=== PATIENT | female | born 1950 | race Caucasian/White ===

== ENCOUNTER → 2017-02-08 | Outpatient (CLI) | payer OTHER ==
[~2017-02-08] MED LIST: ALEN70TA2 PO; AMITRIP PO; AML5T GT; LEVO150T68 PO; PRE5T GT
== END | disposition home or self-care (01) ==
LOC: LAB 09:37
PROVIDERS: ATTEND Internal Medicine
DX: I10 Essential (primary) hypertension (principal); K52.9 Noninfective gastroenteritis and colitis, unspecified
CPT/HCPCS: 36415; 82607; 83036; 84443

== ENCOUNTER → 2017-10-12 | Outpatient (CLI) | payer OTHER ==
[2017-10-12 14:50] LABS: Basophils # (auto) 0.1 uL; Eosinophils # (auto) 0.3 uL; Eosinophils % (auto) 4.8 % (0.0-7.0); Hematocrit 37.6 % (36.0-46.0); Hemoglobin 12.7 g/dL (12.2-16.2); Lymphocytes # (auto) 1.8 uL; Lymphocytes % (auto) 29.5 % (10.0-50.0); Mean Corpuscular Hemoglobin 29.7 pg (28.0-32.0); Mean Corpuscular Hgb Conc. 33.7 g/dL (32.0-36.0); Mean Corpuscular Volume 88.3 fL (80.0-100.0); Mean Platelet Volume 9.4 fL (6.9-10.8); Monocytes # (auto) 0.4 uL; Monocytes % (auto) 7.3 % (0.0-12.0); Neutrophils # (auto) 3.5 uL; Neutrophils % (auto) 57.4 % (37.0-80.0); Platelet Count (auto) 248 10^3/uL (140-450); Red Cell Distribution Width 13.5 % (11.8-14.3); White Blood Cell 6.2 10^3/uL (4.4-10.8)
[2017-10-12 15:31] LABS: Albumin 3.4 g/dL (3.4-5.0); BUN/Creatinine Ratio 10.2; Bilirubin, Total 0.5 mg/dL (0.2-1.0); Calcium 8.3 mg/dL (8.5-10.1); Potassium 3.8 mmol/L (3.5-5.1); Total Protein 6.8 g/dL (6.4-8.2)
== END | disposition home or self-care (01) ==
LOC: LAB 14:28
PROVIDERS: ATTEND Internal Medicine
DX: I10 Essential (primary) hypertension (principal); E03.9 Hypothyroidism, unspecified
CPT/HCPCS: 36415; 80053; 80061; 82043; 84439; 84443; 85025; 85652

== ENCOUNTER → 2018-08-02 | Outpatient (CLI) | payer OTHER ==
[2018-08-02 08:44] LABS: Basophils # (auto) 0.1 uL; Basophils % (auto) 0.5 % (0.0-2.0); Eosinophils # (auto) 0.2 uL; Eosinophils % (auto) 2.1 % (0.0-7.0); Hematocrit 41.4 % (36.0-46.0); Hemoglobin 13.3 g/dL (12.2-16.2); Lymphocytes # (auto) 1.5 uL; Lymphocytes % (auto) 14.3 % (10.0-50.0); Mean Corpuscular Hemoglobin 28.8 pg (28.0-32.0); Mean Corpuscular Hgb Conc. 32.1 g/dL (32.0-36.0); Mean Corpuscular Volume 89.5 fL (80.0-100.0); Monocytes # (auto) 0.4 uL; Monocytes % (auto) 3.4 % (0.0-12.0); Neutrophils # (auto) 8.4 uL; Neutrophils % (auto) 79.7 % (37.0-80.0); Platelet Count (auto) 286 10^3/uL (140-450); Red Blood Cells 4.62 10^6/uL (4.0-5.20); Red Cell Distribution Width 14.4 % (11.8-14.3); White Blood Cell 10.6 10^3/uL (4.4-10.8)
[2018-08-02 09:16] LABS: Albumin 3.8 g/dL (3.4-5.0); BUN/Creatinine Ratio 9.2; Bilirubin, Total 0.6 mg/dL (0.2-1.0); Calcium 8.3 mg/dL (8.5-10.1); Potassium 3.7 mmol/L (3.5-5.1); Total Protein 7.4 g/dL (6.4-8.2)
[2018-08-02 09:17] LABS: Free T4 (Free Thyroxine) 1.33 ng/dL (0.89-1.76)
[2018-08-03 10:26] LABS: Urine Bacteria FEW /hpf (None Seen); Urine Blood Negative /uL (Negative); Urine Mucus FEW (None Seen); Urine Specific Gravity 1.017 (1.001-1.035); Urine WBC 10 /hpf (0 - 5)
== END | disposition home or self-care (01) ==
LOC: LAB 07:51
PROVIDERS: ATTEND Internal Medicine
DX: I10 Essential (primary) hypertension (principal); Z87.39 Personal history of other diseases of the musculoskeletal system and connective tissue
CPT/HCPCS: 36415; 80053; 80061; 81001; 82043; 82607; 83970; 84439; 84443; 84550; 85025; 85652; 86431

== ENCOUNTER → 2019-04-11 | Outpatient (CLI) | payer OTHER | END | disposition home or self-care (01) | LOC: LAB 10:49 | PROVIDERS: ATTEND Internal Medicine | DX: E03.9 Hypothyroidism, unspecified (principal); I10 Essential (primary) hypertension | CPT/HCPCS: 36415; 84132; 84439; 84443 ==

== ENCOUNTER → 2019-07-26 | Outpatient (CLI) | payer OTHER ==
[2019-07-26 16:09] LABS: Basophils # (auto) 0.1 uL; Basophils % (auto) 0.9 % (0.0-2.0); Eosinophils # (auto) 0.6 uL; Eosinophils % (auto) 7.5 % (0.0-7.0); Hematocrit 38.3 % (36.0-46.0); Hemoglobin 12.9 g/dL (12.2-16.2); Lymphocytes % (auto) 26.9 % (10.0-50.0); Mean Corpuscular Hemoglobin 29.5 pg (28.0-32.0); Mean Corpuscular Hgb Conc. 33.6 g/dL (32.0-36.0); Mean Corpuscular Volume 87.9 fL (80.0-100.0); Monocytes # (auto) 0.6 uL; Monocytes % (auto) 8.5 % (0.0-12.0); Neutrophils # (auto) 4.2 uL; Neutrophils % (auto) 56.2 % (37.0-80.0); Platelet Count (auto) 269 10^3/uL (140-450); Red Blood Cells 4.36 10^6/uL (4.0-5.20); Red Cell Distribution Width 14.5 % (11.8-14.3); White Blood Cell 7.5 10^3/uL (4.4-10.8)
[2019-07-26 16:50] LABS: Albumin 3.9 g/dL (3.4-5.0); Calcium 8.6 mg/dL (8.5-10.1); Potassium 3.6 mmol/L (3.5-5.1)
[2019-07-26 16:53] LABS: Bilirubin, Total 0.6 mg/dL (0.2-1.0); Total Protein 7.2 g/dL (6.4-8.2)
== END | disposition home or self-care (01) ==
LOC: LAB 15:37
PROVIDERS: ATTEND Internal Medicine
DX: E03.9 Hypothyroidism, unspecified (principal); I10 Essential (primary) hypertension; Z79.52 Long term (current) use of systemic steroids
CPT/HCPCS: 36415; 80053; 82785; 83036; 84439; 84443; 85025; 85652

== ENCOUNTER → 2019-11-09 | Outpatient (CLI) | payer OTHER ==
[2019-11-09 16:32] LABS: Cholesterol 185 mg/dL (< 200); Triglycerides 95 mg/dL (< 150)
[2019-11-09 16:34] LABS: HDL Cholesterol 97 mg/dL (40-59); LDL Cholesterol 75 mg/dL (< 100)
== END | disposition home or self-care (01) ==
LOC: LAB 15:52
PROVIDERS: ATTEND Internal Medicine
DX: E21.3 Hyperparathyroidism, unspecified (principal); E53.8 Deficiency of other specified B group vitamins; I10 Essential (primary) hypertension
CPT/HCPCS: 36415; 80061; 82607; 83970

== ENCOUNTER → 2020-05-09 | Outpatient (CLI) | payer OTHER ==
[2020-05-09 14:59] LABS: Band Neutrophils % (manual) 0; Basophils % (manual) 0 (0.0-2.0); Blast Cells 0; Metamyelocytes % 0; Myelocytes % 0; Promyelocytes % 0; Reactive Lymphocytes 0
[2020-05-09 15:06] LABS: Hematocrit 36.3 % (36.0-46.0); Hemoglobin 11.9 g/dL (12.2-16.2); Mean Corpuscular Hemoglobin 28.9 pg (28.0-32.0); Mean Corpuscular Hgb Conc. 32.6 g/dL (32.0-36.0); Mean Corpuscular Volume 88.7 fL (80.0-100.0); Platelet Count (auto) 343 10^3/uL (140-450); Red Cell Distribution Width 14.1 % (11.8-14.3); White Blood Cell 10.3 10^3/uL (4.4-10.8)
[2020-05-09 15:15] LABS: Band Neutrophils % (manual) 0; Basophils % (manual) 0 (0.0-2.0); Blast Cells 0; Metamyelocytes % 0; Myelocytes % 0; Promyelocytes % 0; Reactive Lymphocytes 0
[2020-05-09 16:06] LABS: Albumin 3.5 g/dL (3.4-5.0); Calcium 8.8 mg/dL (8.5-10.1); Potassium 3.7 mmol/L (3.5-5.1)
[2020-05-09 16:09] LABS: BUN/Creatinine Ratio 15.3; Bilirubin, Total 0.6 mg/dL (0.2-1.0); Total Protein 7.2 g/dL (6.4-8.2)
[2020-05-09 16:15] LABS: Free T4 (Free Thyroxine) 0.99 ng/dL (0.89-1.76)
[2020-05-09 17:10] LABS: Eosinophils % (manual) 5 (0-7); Lymphocytes % (manual) 28 (10.0-50.0); Monocytes % (manual) 9 (0-12)
[2020-05-09 17:12] LABS: Eosinophils % (manual) 5 (0-7); Lymphocytes % (manual) 28 (10.0-50.0); Monocytes % (manual) 9 (0-12); Platelet Count (auto) 343 10^3/uL (140-450)
== END | disposition home or self-care (01) ==
LOC: LAB 14:36
PROVIDERS: ATTEND Internal Medicine
DX: I89.0 Lymphedema, not elsewhere classified (principal); I10 Essential (primary) hypertension; L30.9 Dermatitis, unspecified
CPT/HCPCS: 36415; 80053; 82607; 83615; 84439; 84443; 85007; 85027; 85652

== ENCOUNTER → 2020-07-10 | Outpatient (CLI) | payer OTHER ==
[2020-07-10 17:58] LABS: Basophils # (auto) 0 10 ^3/uL (0-0.2); Basophils % (auto) 0.3 % (0.0-2.0); Eosinophils # (auto) 0.3 10 ^3/uL (0-0.8); Eosinophils % (auto) 2.7 % (0.0-7.0); Hematocrit 33.3 % (36.0-46.0); Hemoglobin 10.7 g/dL (12.2-16.2); Lymphocytes # (auto) 2.3 10 ^3/uL (0.4-5.4); Lymphocytes % (auto) 21.9 % (10.0-50.0); Mean Corpuscular Hemoglobin 27.8 pg (28.0-32.0); Mean Corpuscular Hgb Conc. 32.3 g/dL (32.0-36.0); Mean Corpuscular Volume 86.3 fL (80.0-100.0); Monocytes # (auto) 1.2 10 ^3/uL (0-1.3); Monocytes % (auto) 11.2 % (0.0-12.0); Neutrophils # (auto) 6.8 10 ^3/uL (1.6-8.6); Neutrophils % (auto) 63.9 % (37.0-80.0); Platelet Count (auto) 365 10^3/uL (140-450); Red Blood Cells 3.86 10^6/uL (4.0-5.20); Red Cell Distribution Width 14.6 % (11.8-14.3); White Blood Cell 10.6 10^3/uL (4.4-10.8)
[2020-07-10 18:06] LABS: BUN/Creatinine Ratio 12.9; Calcium 8.2 mg/dL (8.5-10.1); Potassium 3.5 mmol/L (3.5-5.1)
[2020-07-10 18:09] LABS: Bilirubin, Total 0.3 mg/dL (0.2-1.0); Total Protein 7.2 g/dL (6.4-8.2)
== END | disposition home or self-care (01) ==
LOC: LAB 17:09
PROVIDERS: ATTEND Internal Medicine
DX: N18.3 Chronic kidney disease, stage 3 (moderate) (principal); I89.0 Lymphedema, not elsewhere classified
CPT/HCPCS: 36415; 80053; 84439; 84443; 85025

== ENCOUNTER → 2020-07-31 | Outpatient (CLI) | payer OTHER | END | disposition home or self-care (01) | LOC: LAB 16:24 | PROVIDERS: ATTEND Internal Medicine | DX: L97.319 Non-pressure chronic ulcer of right ankle with unspecified severity (principal) | CPT/HCPCS: 87205 ==

== ENCOUNTER → 2020-08-05 | Outpatient (CLI) | payer OTHER | END | disposition home or self-care (01) | LOC: LAB 15:40 | PROVIDERS: ATTEND Internal Medicine | DX: I89.0 Lymphedema, not elsewhere classified (principal) | CPT/HCPCS: 36415; 82565; 84520 ==

== ENCOUNTER → 2020-08-08 | Outpatient (CLI) | payer OTHER | END | disposition home or self-care (01) | LOC: LAB 16:10 | PROVIDERS: ATTEND Internal Medicine | DX: N39.0 Urinary tract infection, site not specified (principal) | CPT/HCPCS: 87086 ==

== ENCOUNTER → 2020-09-19 | Outpatient (CLI) | payer OTHER ==
[2020-09-19 14:34] LABS: Basophils # (auto) 0 10 ^3/uL (0-0.2); Basophils % (auto) 0.7 % (0.0-2.0); Eosinophils % (auto) 14.5 % (0.0-7.0); Hematocrit 35.4 % (36.0-46.0); Hemoglobin 11.4 g/dL (12.2-16.2); Lymphocytes # (auto) 1.3 10 ^3/uL (0.4-5.4); Lymphocytes % (auto) 20.2 % (10.0-50.0); Mean Corpuscular Hemoglobin 28.2 pg (28.0-32.0); Mean Corpuscular Hgb Conc. 32.3 g/dL (32.0-36.0); Mean Corpuscular Volume 87.3 fL (80.0-100.0); Monocytes # (auto) 0.6 10 ^3/uL (0-1.3); Monocytes % (auto) 8.7 % (0.0-12.0); Neutrophils # (auto) 3.7 10 ^3/uL (1.6-8.6); Neutrophils % (auto) 55.9 % (37.0-80.0); Platelet Count (auto) 337 10^3/uL (140-450); Red Blood Cells 4.06 10^6/uL (4.0-5.20); Red Cell Distribution Width 15.8 % (11.8-14.3); White Blood Cell 6.6 10^3/uL (4.4-10.8)
[2020-09-19 15:06] LABS: Potassium 3.5 mmol/L (3.5-5.1)
[2020-09-19 15:07] LABS: Albumin 3.2 g/dL (3.4-5.0); Calcium 8.7 mg/dL (8.5-10.1); Uric Acid 5.6 mg/dL (2.6-6.0)
[2020-09-19 15:10] LABS: BUN/Creatinine Ratio 9.3; Bilirubin, Total 0.3 mg/dL (0.2-1.0); Total Protein 6.7 g/dL (6.4-8.2)
[2020-09-20 13:03] LABS: Urine Bacteria MANY /hpf (None Seen); Urine Blood TRACE /uL (Negative); Urine Hyaline Cast FEW /lpf (0 - 2); Urine Mucus FEW (None Seen); Urine Specific Gravity 1.008 (1.001-1.035); Urine WBC 1 /hpf (0 - 5)
== END | disposition home or self-care (01) ==
LOC: LAB 14:13
PROVIDERS: ATTEND Internal Medicine
DX: D64.9 Anemia, unspecified (principal); I10 Essential (primary) hypertension
CPT/HCPCS: 36415; 80053; 80061; 81001; 82607; 84403; 84550; 85025; 85652

== ENCOUNTER → 2021-03-05 | Outpatient (CLI) | payer OTHER ==
[~2021-03-05] MED LIST changes: +AMIT25TA11 PO; -AMITRIP PO; +LEV150T PO; -LEVO150T68 PO
[2021-03-05 17:37] LABS: BUN/Creatinine Ratio 17.6; Calcium 8.9 mg/dL (8.5-10.1)
== END | disposition home or self-care (01) ==
LOC: LAB 16:07
PROVIDERS: ATTEND Internal Medicine
DX: I10 Essential (primary) hypertension (principal)
CPT/HCPCS: 36415; 80048; 84439; 84443

== ENCOUNTER → 2021-04-30 | Outpatient (CLI) | payer OTHER | END | disposition home or self-care (01) | LOC: XYW 09:45 | PROVIDERS: ATTEND Internal Medicine | DX: I11.0 Hypertensive heart disease with heart failure (principal); I50.32 Chronic diastolic (congestive) heart failure | CPT/HCPCS: 93306 ==

== ENCOUNTER → 2021-09-12 | Outpatient (CLI) | payer OTHER ==
[2021-09-12 11:29] LABS: Basophils # (auto) 0.1 10 ^3/uL (0-0.2); Basophils % (auto) 0.7 % (0.0-2.0); Eosinophils # (auto) 0.7 10 ^3/uL (0-0.8); Eosinophils % (auto) 9.2 % (0.0-7.0); Hematocrit 37.1 % (36.0-46.0); Hemoglobin 12.4 g/dL (12.2-16.2); Lymphocytes # (auto) 1.8 10 ^3/uL (0.4-5.4); Lymphocytes % (auto) 24.2 % (10.0-50.0); Mean Corpuscular Hemoglobin 28.7 pg (28.0-32.0); Mean Corpuscular Hgb Conc. 33.3 g/dL (32.0-36.0); Mean Corpuscular Volume 86.2 fL (80.0-100.0); Monocytes # (auto) 0.7 10 ^3/uL (0-1.3); Monocytes % (auto) 9.3 % (0.0-12.0); Neutrophils # (auto) 4.3 10 ^3/uL (1.6-8.6); Neutrophils % (auto) 56.6 % (37.0-80.0); Red Cell Distribution Width 14.6 % (11.8-14.3); White Blood Cell 7.5 10^3/uL (4.4-10.8)
[2021-09-12 11:44] LABS: Albumin 3.2 g/dL (3.4-5.0); Calcium 8.5 mg/dL (8.5-10.1); Potassium 3.6 mmol/L (3.5-5.1)
[2021-09-12 11:49] LABS: BUN/Creatinine Ratio 8.4; Bilirubin, Total 0.5 mg/dL (0.2-1.0); Total Protein 6.6 g/dL (6.4-8.2)
[2021-09-14 14:58] LABS: Free T4 (Free Thyroxine) 1.54 ng/dL (0.89-1.76)
== END | disposition home or self-care (01) ==
LOC: LAB 11:06
PROVIDERS: ATTEND Internal Medicine
DX: M00.1 Pneumococcal arthritis and polyarthritis (principal); I10 Essential (primary) hypertension; G62.9 Polyneuropathy, unspecified
CPT/HCPCS: 36415; 80053; 80061; 82607; 84439; 84443; 85025; 85652

== ENCOUNTER 2021-10-02 01:58 | Inpatient (IN) | payer OTHER ==
[~2021-10-02] VITALS: Ht 160 cm; Wt 85.7 kg
[2021-10-02] VITALS (7 sets, daily range): BP systolic 96–152; BP diastolic 54–110
[2021-10-02] MEDS ORDERED: TRIA0.5C TOP (04:49)
[2021-10-02] MEDS ORDERED: LEVO175T2 PO (04:49)
[2021-10-02] MEDS ORDERED: [UNRECOGNIZED DRUG - CODE] PO (04:49)
[2021-10-02] MEDS ORDERED: LISI-275 PO (04:49)
[2021-10-02] MEDS ORDERED: CHOL20007 PO (04:49)
[2021-10-02] MEDS: LEVOTHYROXINE SODIUM 50 MCG TAB PO SCH (07:25)
[2021-10-02] MEDS: cefTRIAXone 1GM/50ML D5W 50 ML IV SCH (09:40)
[2021-10-02] MEDS: LISINOPRIL 5 MG TAB PO SCH (10:00)
[2021-10-02] MEDS: SODIUM CHLORIDE 0.9% 1,000 ML IV SCH ×2 (10:23→19:00)
[2021-10-02 11:34] LABS: Basophils # (auto) 0.1 10 ^3/uL (0-0.2); Basophils % (auto) 0.7 % (0.0-2.0); Eosinophils # (auto) 0.7 10 ^3/uL (0-0.8); Eosinophils % (auto) 8.2 % (0.0-7.0); Hematocrit 36.8 % (36.0-46.0); Hemoglobin 12.3 g/dL (12.2-16.2); Lymphocytes # (auto) 1.2 10 ^3/uL (0.4-5.4); Lymphocytes % (auto) 15.3 % (10.0-50.0); Mean Corpuscular Hgb Conc. 33.6 g/dL (32.0-36.0); Mean Corpuscular Volume 86.3 fL (80.0-100.0); Monocytes # (auto) 0.8 10 ^3/uL (0-1.3); Monocytes % (auto) 10.3 % (0.0-12.0); Neutrophils # (auto) 5.3 10 ^3/uL (1.6-8.6); Neutrophils % (auto) 65.5 % (37.0-80.0); Nucleated Red Blood Cells % 0.1 %; Red Blood Cells 4.26 10^6/uL (4.0-5.20); Red Cell Distribution Width 14.5 % (11.8-14.3); White Blood Cell 8.1 10^3/uL (4.4-10.8)
[2021-10-02 11:42] LABS: Albumin 2.6 g/dL (3.4-5.0); Calcium 8.1 mg/dL (8.5-10.1); Magnesium 2.6 mg/dL (1.6-2.6); Potassium 4.1 mmol/L (3.5-5.1)
[2021-10-02 11:46] LABS: BUN/Creatinine Ratio 8.6; Bilirubin, Total 0.6 mg/dL (0.2-1.0); Total Protein 5.8 g/dL (6.4-8.2)
[2021-10-02] MEDS ORDERED: predniSONE 5 MG TAB PO ONE (13:15)
[2021-10-02] MEDS ORDERED: ENOXAPARIN SOD 40 MG/0.4 ML SYRINGE SC ONE (15:30)
[2021-10-03] MEDS: SODIUM CHLORIDE 0.9% 1,000 ML IV SCH ×2 (01:45→08:29)
[2021-10-03 05:00] VITALS: BP 131/71
[2021-10-03] MEDS: LEVOTHYROXINE SODIUM 50 MCG TAB PO SCH (06:20)
[2021-10-03 06:41] LABS: Calcium 8.3 mg/dL (8.5-10.1); Potassium 3.8 mmol/L (3.5-5.1)
[2021-10-03 06:43] LABS: Basophils # (auto) 0 10 ^3/uL (0-0.2); Basophils % (auto) 0.3 % (0.0-2.0); Eosinophils # (auto) 0.3 10 ^3/uL (0-0.8); Eosinophils % (auto) 2.6 % (0.0-7.0); Hematocrit 37.1 % (36.0-46.0); Hemoglobin 12.2 g/dL (12.2-16.2); Lymphocytes # (auto) 1.1 10 ^3/uL (0.4-5.4); Lymphocytes % (auto) 11.5 % (10.0-50.0); Mean Corpuscular Hemoglobin 28.7 pg (28.0-32.0); Mean Corpuscular Hgb Conc. 32.8 g/dL (32.0-36.0); Mean Corpuscular Volume 87.6 fL (80.0-100.0); Monocytes % (auto) 10.1 % (0.0-12.0); Neutrophils # (auto) 7.3 10 ^3/uL (1.6-8.6); Neutrophils % (auto) 75.5 % (37.0-80.0); Red Blood Cells 4.24 10^6/uL (4.0-5.20); Red Cell Distribution Width 14.7 % (11.8-14.3); White Blood Cell 9.7 10^3/uL (4.4-10.8)
[2021-10-03 06:44] LABS: BUN/Creatinine Ratio 12.9
[2021-10-03] MEDS: cefTRIAXone 1GM/50ML D5W 50 ML IV SCH (08:25)
[2021-10-03] MEDS: ENOXAPARIN SOD 40 MG/0.4 ML SYRINGE SC SCH (08:26)
[2021-10-03] MEDS: LISINOPRIL 5 MG TAB PO SCH (08:28)
[2021-10-03] MEDS: predniSONE 5 MG TAB PO SCH (08:28)
[2021-10-03 09:00] VITALS: BP 117/70
[2021-10-03 13:00] VITALS: BP 134/81
[2021-10-03 17:00] VITALS: BP 151/96
[2021-10-03 22:00] VITALS: BP 125/58
[2021-10-04 05:00] VITALS: BP 99/54
[2021-10-04] MEDS: LEVOTHYROXINE SODIUM 50 MCG TAB PO SCH (06:22)
[2021-10-04 09:30] VITALS: BP 108/64
[2021-10-04] MEDS: predniSONE 5 MG TAB PO SCH (09:46)
[2021-10-04] MEDS: cefTRIAXone 1GM/50ML D5W 50 ML IV SCH (09:46)
[2021-10-04] MEDS: ENOXAPARIN SOD 40 MG/0.4 ML SYRINGE SC SCH (09:47)
[2021-10-04 12:00] VITALS: BP 105/57
[2021-10-04] MEDS ORDERED: levoFLOXacin 500 MG TAB PO ONE (14:00)
[2021-10-04 16:00] VITALS: BP 113/71
[2021-10-04] MEDS: LISINOPRIL 5 MG TAB PO SCH (16:19)
[2021-10-04 22:00] VITALS: BP 122/71
[2021-10-05 05:00] VITALS: BP 98/46
[2021-10-05] MEDS: LEVOTHYROXINE SODIUM 50 MCG TAB PO SCH (06:18)
[2021-10-05 08:00] VITALS: BP 114/66
[2021-10-05] MEDS: ENOXAPARIN SOD 40 MG/0.4 ML SYRINGE SC SCH (10:00)
[2021-10-05] MEDS: predniSONE 5 MG TAB PO SCH (10:58)
[2021-10-05] MEDS: levoFLOXacin 500 MG TAB PO SCH (10:58)
[2021-10-05] MEDS: LISINOPRIL 5 MG TAB PO SCH (10:59)
[2021-10-05 12:00] VITALS: BP 128/62
[2021-10-05 16:00] VITALS: BP 120/64
[2021-10-05 22:00] VITALS: BP 107/70
[2021-10-06 05:00] VITALS: BP 117/73
[2021-10-06] MEDS: LEVOTHYROXINE SODIUM 50 MCG TAB PO SCH (06:35)
[2021-10-06 09:00] VITALS: BP 103/72
[2021-10-06] MEDS: levoFLOXacin 500 MG TAB PO SCH (10:40)
[2021-10-06] MEDS: predniSONE 5 MG TAB PO SCH (10:40)
[2021-10-06] MEDS: LISINOPRIL 5 MG TAB PO SCH (10:41)
[2021-10-06] MEDS: ENOXAPARIN SOD 40 MG/0.4 ML SYRINGE SC SCH (10:41)
[2021-10-06 13:00] VITALS: BP 96/51
[2021-10-06 18:28] VITALS: BP 96/51
[2021-10-07] MEDS ORDERED: LEVO-28 PO (11:07)
== END 2021-10-06 19:10 | disposition home health service (06) | DRG 552 ==
LOC: TELE-CENTR 01:58 → CENTRAL 19:30 → WEST WING 10-03 00:22
PROVIDERS: ADMIT Internal Medicine; ATTEND Internal Medicine
DX: M47.27 Other spondylosis with radiculopathy, lumbosacral region (principal); N30.00 Acute cystitis without hematuria; I10 Essential (primary) hypertension; E03.9 Hypothyroidism, unspecified; L20.9 Atopic dermatitis, unspecified; E66.9 Obesity, unspecified; G62.9 Polyneuropathy, unspecified; Z20.822 Contact with and (suspected) exposure to COVID-19; Z66 Do not resuscitate; B95.2 Enterococcus as the cause of diseases classified elsewhere; G89.29 Other chronic pain; Z88.0 Allergy status to penicillin; Z88.2 Allergy status to sulfonamides; Z91.040 Latex allergy status; Z90.49 Acquired absence of other specified parts of digestive tract; Z90.710 Acquired absence of both cervix and uterus; Z68.33 Body mass index [BMI] 33.0-33.9, adult
CPT/HCPCS: 36415; 72146; 72148; 80048; 80053; 82565; 82962; 83735; 84443; 85025; 87081; 87086; 87088; 87186; 87426; 97110; 97116; 97163; 97530; G0378; J0696

== ENCOUNTER 2021-10-06 23:08 | Observation (INO) | payer OTHER ==
[~2021-10-06] VITALS: Ht 165.1 cm; Wt 88.5 kg
[~2021-10-06 23:08] MED LIST changes: +CHOL20007 PO; +LEVO175T2 PO; +LISI-275 PO; +TRIA0.5C TOP; +[UNRECOGNIZED DRUG - CODE] PO
[2021-10-07 02:17] LABS: Albumin 3.1 g/dL (3.4-5.0); Calcium 9.1 mg/dL (8.5-10.1); Magnesium 2.3 mg/dL (1.6-2.6); Potassium 3.8 mmol/L (3.5-5.1)
[2021-10-07 02:18] LABS: INR 1.06 (0.9-1.15)
[2021-10-07 02:24] LABS: Basophils # (auto) 0 10 ^3/uL (0-0.2); Basophils % (auto) 0.2 % (0.0-2.0); Eosinophils # (auto) 0 10 ^3/uL (0-0.8); Eosinophils % (auto) 0.4 % (0.0-7.0); Hematocrit 40.2 % (36.0-46.0); Hemoglobin 13.4 g/dL (12.2-16.2); Lymphocytes # (auto) 1.4 10 ^3/uL (0.4-5.4); Lymphocytes % (auto) 10.7 % (10.0-50.0); Mean Corpuscular Hemoglobin 28.8 pg (28.0-32.0); Mean Corpuscular Hgb Conc. 33.3 g/dL (32.0-36.0); Mean Corpuscular Volume 86.6 fL (80.0-100.0); Monocytes # (auto) 1.2 10 ^3/uL (0-1.3); Neutrophils # (auto) 10.5 10 ^3/uL (1.6-8.6); Neutrophils % (auto) 79.7 % (37.0-80.0); Red Blood Cells 4.64 10^6/uL (4.0-5.20); Red Cell Distribution Width 14.6 % (11.8-14.3); White Blood Cell 13.2 10^3/uL (4.4-10.8)
[2021-10-07 02:28] LABS: Bilirubin, Total 0.4 mg/dL (0.2-1.0); Total Protein 7.2 g/dL (6.4-8.2)
[2021-10-07 04:23] LABS: Urine Bacteria NONE SEEN /hpf (None Seen); Urine Blood 1+ /uL (Negative); Urine Hyaline Cast FEW /lpf (0 - 2); Urine Mucus FEW (None Seen); Urine Specific Gravity 1.015 (1.001-1.035); Urine WBC 7 /hpf (0 - 5)
[2021-10-07] MEDS ORDERED: MORPHINE SULFATE INJECTION 2 MG/ML SYRG IV PRN (06:15)
[2021-10-07] MEDS ORDERED: NITROGLYCERIN 0.4 MG SL TAB SL PRN (06:15)
[2021-10-07] MEDS ORDERED: ONDANSETRON HCL 4 MG/2 ML VIAL IV PRN (06:15)
[2021-10-07] MEDS ORDERED: ACETAMINOPHEN 325 MG TAB PO PRN (06:15)
[2021-10-07] MEDS ORDERED: LEVOTHYROXINE SODIUM 100 MCG TAB PO SCH (07:23)
[2021-10-07] MEDS ORDERED: LEVOTHYROXINE SODIUM 50 MCG TAB PO SCH (07:24)
[2021-10-07] MEDS ORDERED: ZINC SULFATE 220mg CAP or TAB PO SCH (10:00)
[2021-10-07] MEDS ORDERED: ASCORBIC ACID 500 MG TAB PO SCH (10:00)
[2021-10-07] MEDS ORDERED: PANTOPRAZOLE 40 MG TAB PO SCH (10:00)
[2021-10-07] MEDS ORDERED: LISINOPRIL 5 MG TAB PO SCH (10:00)
[2021-10-07] MEDS ORDERED: ENOXAPARIN SOD 40 MG/0.4 ML SYRINGE SC SCH (10:00)
[2021-10-07] MEDS ORDERED: levoFLOXacin 500MG 100 ML IV SCH (10:00)
[2021-10-07] MEDS ORDERED: LEVO-28 PO (11:07)
[2021-10-07 14:00] VITALS: BP 109/54
== END 2021-10-07 16:20 | disposition home or self-care (01) ==
LOC: EDBD 23:08 → ER 23:08 → TELE 10-07 06:05 → INTOOBSV 10-07 06:05
PROVIDERS: ADMIT Nurse Practitioner; ATTEND Internal Medicine
DX: R55 Syncope and collapse (principal); Z20.822 Contact with and (suspected) exposure to COVID-19; M48.00 Spinal stenosis, site unspecified; I10 Essential (primary) hypertension; N39.0 Urinary tract infection, site not specified; D84.9 Immunodeficiency, unspecified; Z90.710 Acquired absence of both cervix and uterus; Z90.49 Acquired absence of other specified parts of digestive tract
CPT/HCPCS: 36415; 70450; 71045; 80053; 81001; 83605; 83735; 83880; 84484; 85025; 85610; 87426; 93886; 96365; 96366; 96372; 99285; G0378; J1650; J1956

== ENCOUNTER 2022-11-16 22:13 | Inpatient (IN) | payer MEDICARE, MEDICAID ==
[~2022-11-16] VITALS: Ht 170.2 cm; Wt 78.0 kg
[~2022-11-16 22:13] MED LIST changes: +LEVO-28 PO; -PRE5T GT; +PRE5T PO
[2022-11-17 01:06] LABS: Basophils # (auto) 0 10 ^3/uL (0-0.2); Basophils % (auto) 0.3 % (0.0-2.0); Eosinophils # (auto) 0.1 10 ^3/uL (0-0.8); Eosinophils % (auto) 0.5 % (0.0-7.0); Hematocrit 38.4 % (36.0-46.0); Hemoglobin 12.4 g/dL (12.2-16.2); Lymphocytes # (auto) 0.4 10 ^3/uL (0.4-5.4); Lymphocytes % (auto) 3.6 % (10.0-50.0); Mean Corpuscular Hemoglobin 28.2 pg (28.0-32.0); Mean Corpuscular Hgb Conc. 32.3 g/dL (32.0-36.0); Mean Corpuscular Volume 87.5 fL (80.0-100.0); Monocytes # (auto) 0.2 10 ^3/uL (0-1.3); Monocytes % (auto) 2.1 % (0.0-12.0); Neutrophils # (auto) 9.8 10 ^3/uL (1.6-8.6); Neutrophils % (auto) 93.5 % (37.0-80.0); Red Blood Cells 4.39 10^6/uL (4.0-5.20); Red Cell Distribution Width 15.2 % (11.8-14.3); White Blood Cell 10.5 10^3/uL (4.4-10.8)
[2022-11-17 01:27] LABS: Albumin 3.6 g/dL (3.4-5.0); BUN/Creatinine Ratio 12.4; Potassium 4.2 mmol/L (3.5-5.1)
[2022-11-17 01:29] LABS: Bilirubin, Total 0.8 mg/dL (0.2-1.0); Total Protein 6.9 g/dL (6.4-8.2)
[2022-11-17] MEDS ORDERED: HYDROcodone-ACET 5/325MG TAB PO PRN (05:30)
[2022-11-17] MEDS ORDERED: DOCUSATE SOD 100 MG CAP PO PRN (05:30)
[2022-11-17] MEDS ORDERED: MORPHINE SULFATE INJ 2 MG/ml SYRG IV PRN (05:30)
[2022-11-17] MEDS ORDERED: ONDANSETRON HCL 4 MG/2 ML VIAL IV PRN (05:30)
[2022-11-17] MEDS ORDERED: ACETAMINOPHEN 325 MG TAB PO PRN (05:30)
[2022-11-17] MEDS ORDERED: SODIUM CHLORIDE 0.9% 1,000 ML IV SCH (05:30)
[2022-11-17 05:48] LABS: Basophils # (auto) 0 10 ^3/uL (0-0.2); Basophils % (auto) 0.1 % (0.0-2.0); Eosinophils # (auto) 0 10 ^3/uL (0-0.8); Hematocrit 38.4 % (36.0-46.0); Hemoglobin 12.2 g/dL (12.2-16.2); Lymphocytes # (auto) 0.4 10 ^3/uL (0.4-5.4); Lymphocytes % (auto) 5.6 % (10.0-50.0); Mean Corpuscular Hemoglobin 27.9 pg (28.0-32.0); Mean Corpuscular Hgb Conc. 31.8 g/dL (32.0-36.0); Mean Corpuscular Volume 87.9 fL (80.0-100.0); Monocytes # (auto) 0.1 10 ^3/uL (0-1.3); Monocytes % (auto) 1.7 % (0.0-12.0); Neutrophils # (auto) 6.7 10 ^3/uL (1.6-8.6); Neutrophils % (auto) 92.6 % (37.0-80.0); Nucleated Red Blood Cells % 0.1 %; Red Blood Cells 4.37 10^6/uL (4.0-5.20); White Blood Cell 7.3 10^3/uL (4.4-10.8)
[2022-11-17 06:01] LABS: BUN/Creatinine Ratio 12.6; Calcium 8.7 mg/dL (8.5-10.1); Potassium 4.3 mmol/L (3.5-5.1)
[2022-11-17] MEDS ORDERED: FUROSEMIDE 20 MG/2 ML VIAL IV ONE (10:45)
[2022-11-17] MEDS ORDERED: predniSONE 5 MG TAB PO SCH (10:56)
[2022-11-17 14:52] LABS: Urine Specific Gravity 1.008 (1.001-1.035)
[2022-11-17 14:53] LABS: Urine Blood Normal /uL (Negative)
[2022-11-17] MEDS ORDERED: GABA100C9 PO (16:22)
[2022-11-17] MEDS ORDERED: CYAN25004 SL (16:22)
[2022-11-17] MEDS ORDERED: ERTAPENEM SOD INJ 1 GM in SODIUM CHL 0.9% 50 ML IV ONE (19:00)
[2022-11-17 22:00] VITALS: BP 136/74
[2022-11-17 22:13] VITALS: BP 136/74
[2022-11-18] VITALS (7 sets, daily range): BP systolic 90–135; BP diastolic 52–77
[2022-11-18 05:43] LABS: Calcium 8.6 mg/dL (8.5-10.1); Potassium 3.7 mmol/L (3.5-5.1)
[2022-11-18 05:45] LABS: BUN/Creatinine Ratio 16.3; Magnesium 2.4 mg/dL (1.6-2.6); Phosphorus 3.3 mg/dL (2.5-4.90)
[2022-11-18 05:53] LABS: Basophils # (auto) 0 10 ^3/uL (0-0.2); Basophils % (auto) 0.3 % (0.0-2.0); Eosinophils # (auto) 0.4 10 ^3/uL (0-0.8); Eosinophils % (auto) 4.2 % (0.0-7.0); Hematocrit 32.9 % (36.0-46.0); Hemoglobin 10.7 g/dL (12.2-16.2); Lymphocytes # (auto) 1.5 10 ^3/uL (0.4-5.4); Mean Corpuscular Hemoglobin 28.3 pg (28.0-32.0); Mean Corpuscular Hgb Conc. 32.7 g/dL (32.0-36.0); Mean Corpuscular Volume 86.6 fL (80.0-100.0); Monocytes # (auto) 0.9 10 ^3/uL (0-1.3); Monocytes % (auto) 8.9 % (0.0-12.0); Neutrophils % (auto) 71.6 % (37.0-80.0); White Blood Cell 9.8 10^3/uL (4.4-10.8)
[2022-11-18] MEDS: LEVOTHYROXINE SODIUM 50 MCG TAB PO SCH (06:34)
[2022-11-18] MEDS ORDERED: ERGOCALCIFEROL 50,000 UNIT(1.25MG) CAP PO SCH (08:00)
[2022-11-18] MEDS ORDERED: AMITRIPTYLINE HCL 25 MG TAB PO SCH (10:00)
[2022-11-18] MEDS ORDERED: amLODIPine BESYLATE 5 MG TAB PO SCH (10:00)
[2022-11-18] MEDS: FUROSEMIDE 20 MG/2 ML VIAL IV SCH (10:23)
[2022-11-18] MEDS: LISINOPRIL 5 MG TAB PO SCH (10:23)
[2022-11-18] MEDS: GABAPENTIN 100 MG CAP PO SCH (10:23)
[2022-11-18] MEDS: ERTAPENEM SOD INJ 1 GM in SODIUM CHL 0.9% 50 ML IV SCH (10:24)
[2022-11-18] MEDS ORDERED: prednisoLONE 15 MG/5 ML ORAL UD PO ONE (14:00)
[2022-11-18] MEDS ORDERED: OMNIPAQUE ORAL SOLN 500ml 12mg/ml PO ONE ×2 (16:34)
[2022-11-18] MEDS ORDERED: IOHEXOL 300 MG/ML 100ML BOTTLE IJ ONE (18:40)
[2022-11-19] MEDS: GABAPENTIN 100 MG CAP PO SCH ×2 (00:27→12:13)
[2022-11-19 05:19] VITALS: BP 113/66
[2022-11-19] MEDS: LEVOTHYROXINE SODIUM 50 MCG TAB PO SCH (06:59)
[2022-11-19 08:00] VITALS: BP 110/68
[2022-11-19 09:00] VITALS: BP 110/68
[2022-11-19] MEDS ORDERED: predniSONE 20 MG TAB PO SCH (10:00)
[2022-11-19] MEDS ORDERED: metroNIDAZOLE 500MG/100ML 100 ML IV ONE (11:00)
[2022-11-19] MEDS: LISINOPRIL 5 MG TAB PO SCH (12:13)
[2022-11-19] MEDS: FUROSEMIDE 20 MG/2 ML VIAL IV SCH (12:13)
[2022-11-19 13:00] VITALS: BP 101/62
[2022-11-19] MEDS: ERTAPENEM SOD INJ 1 GM in SODIUM CHL 0.9% 50 ML IV SCH (13:25)
[2022-11-19 13:34] VITALS: BP 101/62
[2022-11-19] MEDS ORDERED: metroNIDAZOLE 500MG/100ML 100 ML IV SCH (18:00)
== END 2022-11-19 15:27 | DRG 291 ==
LOC: ER 22:14 → OVERFLOW 11-17 05:24 → WEST WING 11-17 21:28
PROVIDERS: ADMIT Hospitalist; ATTEND Internal Medicine
DX: I11.0 Hypertensive heart disease with heart failure (principal); I50.31 Acute diastolic (congestive) heart failure; N30.00 Acute cystitis without hematuria; R62.7 Adult failure to thrive; R55 Syncope and collapse; E03.9 Hypothyroidism, unspecified; K52.9 Noninfective gastroenteritis and colitis, unspecified; Z20.822 Contact with and (suspected) exposure to COVID-19; L30.9 Dermatitis, unspecified; Z66 Do not resuscitate; G89.29 Other chronic pain; M54.9 Dorsalgia, unspecified; Z88.2 Allergy status to sulfonamides; Z88.0 Allergy status to penicillin; Z91.040 Latex allergy status; Z90.710 Acquired absence of both cervix and uterus; Z90.49 Acquired absence of other specified parts of digestive tract
CPT/HCPCS: 36415; 70450; 71045; 74177; 80048; 80053; 81003; 82306; 82378; 83036; 83735; 83880; 84100; 84439; 84443; 84484; 85025; 85652; 86141; 86431; 87086; 87088; 87186; 87426; 93306; 96360; 97110; 97116; 97163; 97530; G0378; J1335; J3490; J7510

== ENCOUNTER 2023-05-31 08:16 | Inpatient (IN) | payer MEDICARE, MEDICAID ==
[~2023-05-31] VITALS: Ht 160 cm; Wt 73.1 kg
[~2023-05-31 08:16] MED LIST changes: -ALEN70TA2 PO; +ALEN70TA21 PO; -AMIT25TA11 PO; -AML5T GT; -CHOL20007 PO; +CYAN25007 SL; +GABA-1308 PO; -LEV150T PO; -LEVO-28 PO; -[UNRECOGNIZED DRUG - CODE] PO
[2023-05-31 09:19] LABS: Hematocrit 41.8 % (36.0-46.0); Mean Corpuscular Hemoglobin 30.9 pg (28.0-32.0); Mean Corpuscular Hgb Conc. 33.4 g/dL (32.0-36.0); Mean Corpuscular Volume 92.7 fL (80.0-100.0); Red Blood Cells 4.51 10^6/uL (4.0-5.20); Red Cell Distribution Width 14.2 % (11.8-14.3); White Blood Cell 9.1 10^3/uL (4.4-10.8)
[2023-05-31 09:22] LABS: Band Neutrophils % (manual) 0; Basophils % (manual) 0 (0.0-2.0); Blast Cells 0; Eosinophils % (manual) 0 (0-7); Metamyelocytes % 0; Myelocytes % 0; Promyelocytes % 0; Reactive Lymphocytes 0
[2023-05-31 09:37] LABS: Albumin 3.3 g/dL (3.4-5.0); Calcium 8.6 mg/dL (8.5-10.1)
[2023-05-31 09:40] LABS: BUN/Creatinine Ratio 21.8 (10.0-20.0); Bilirubin, Total 1.2 mg/dL (0.2-1.0); Total Protein 6.1 g/dL (6.4-8.2)
[2023-05-31 09:45] LABS: Potassium 2.5 mmol/L (3.5-5.1)
[2023-05-31 09:50] VITALS: PULSE 88; RESP 16; O2SAT 97
[2023-05-31] MEDS ORDERED: POTASSIUM EFFERVESENT TAB 25 MEQ PO ONE (10:00)
[2023-05-31 10:16] LABS: Lymphocytes % (manual) 12 (10.0-50.0); Monocytes % (manual) 10 (0-12)
[2023-05-31 12:24] LABS: Urine WBC None Seen /hpf (0 - 5)
[2023-05-31 12:32] LABS: Urine Bacteria NONE SEEN /hpf (None Seen); Urine Blood Negative /uL (Negative); Urine Specific Gravity 1.024 (1.001-1.035)
[2023-05-31 12:54] LABS: Alcohol, Urine < 3.0 mg/dL (0-10); Amphetamine Screen, Urine NEGATIVE (NEGATIVE); Barbiturate Scree,Urine NEGATIVE (NEGATIVE); Benzodiazephine Screen, Urine NEGATIVE (NEGATIVE); Cannabinoid Screen, Urine NEGATIVE (NEGATIVE); Cocaine Screen, Urine NEGATIVE (NEGATIVE); Opiate Scree,Urine POSITIVE (NEGATIVE); Phencyclidine Screen, Urine NEGATIVE (NEGATIVE)
[2023-05-31 21:37] VITALS: PULSE 89; RESP 16; O2SAT 96
[2023-06-01 07:35] VITALS: PULSE 81; RESP 14; O2SAT 96
[2023-06-01 19:45] VITALS: PULSE 79; RESP 20; O2SAT 97
[2023-06-01] MEDS ORDERED: POTASSIUM CHL 20MEQ/100ML 100 ML IV ONE (21:00)
[2023-06-01 21:39] VITALS: PULSE 78; RESP 16; O2SAT 94
[2023-06-02] MEDS ORDERED: ACETAMINOPHEN 325 MG TAB PO PRN (01:00)
[2023-06-02] MEDS ORDERED: ONDANSETRON HCL 4 MG/2 ML VIAL IV PRN (01:00)
[2023-06-02] MEDS ORDERED: NITROGLYCERIN 0.4 MG SL TAB SL PRN (01:00)
[2023-06-02] MEDS ORDERED: MORPHINE SULFATE INJ 2 MG/ml SYRG IV PRN (01:00)
[2023-06-02] MEDS ORDERED: POTASSIUM CHLORIDE 40 MEQ, LIDOCAINE 1% (LOCAL ANESTH.) 4 ML in SODIUM CHL 0.9% 250 ML IV ONE (02:00)
[2023-06-02] MEDS ORDERED: POTASSIUM CHL 20MEQ/100ML 100 ML IV ONE ×2 (03:15→06:00)
[2023-06-02] MEDS: LEVOTHYROXINE SODIUM 50 MCG TAB PO SCH (07:11)
[2023-06-02 07:30] VITALS: PULSE 69; RESP 14; O2SAT 96
[2023-06-02] MEDS ORDERED: amLODIPine BESYLATE 5 MG TAB PO SCH (10:00)
[2023-06-02] MEDS: GABAPENTIN 100 MG CAP PO SCH ×2 (12:23→22:00)
[2023-06-02] MEDS: ENOXAPARIN SOD 40 MG/0.4 ML SYRINGE SC SCH (12:23)
[2023-06-02] MEDS: PANTOPRAZOLE 40 MG TAB PO SCH (12:23)
[2023-06-02] MEDS ORDERED: predniSONE 5 MG TAB PO ONE (16:30)
[2023-06-02] MEDS ORDERED: CYANOCOBALAMIN 500 MCG TAB PO ONE (16:30)
[2023-06-02 20:00] VITALS: PULSE 78; RESP 16; O2SAT 93
[2023-06-02 20:28] LABS: Calcium 7.1 mg/dL (8.5-10.1)
[2023-06-02] MEDS: HYDROcodone-ACET 5/325MG TAB PO PRN (22:00)
[2023-06-03] MEDS ORDERED: SODIUM CHLORIDE 0.9% 500 ML IV ONE (03:30)
[2023-06-03 05:57] LABS: BUN/Creatinine Ratio 21.4 (10.0-20.0); Calcium 6.9 mg/dL (8.5-10.1); Magnesium 1.3 mg/dL (1.6-2.6)
[2023-06-03] MEDS: LEVOTHYROXINE SODIUM 50 MCG TAB PO SCH (07:23)
[2023-06-03 07:50] VITALS: PULSE 87; RESP 14; O2SAT 97
[2023-06-03] MEDS ORDERED: MAGNESIUM SULFATE 1GM/100ML 100 ML IV ONE (10:00)
[2023-06-03] MEDS: ENOXAPARIN SOD 40 MG/0.4 ML SYRINGE SC SCH (10:37)
[2023-06-03] MEDS: GABAPENTIN 100 MG CAP PO SCH ×2 (10:38→21:07)
[2023-06-03] MEDS: predniSONE 5 MG TAB PO SCH (10:38)
[2023-06-03] MEDS: PANTOPRAZOLE 40 MG TAB PO SCH (10:38)
[2023-06-03] MEDS: CYANOCOBALAMIN 500 MCG TAB PO SCH (10:45)
[2023-06-03] MEDS ORDERED: SODIUM CHLORIDE 0.9% 250 ML IV ONE (13:00)
[2023-06-03] MEDS: SODIUM CHLORIDE 0.9% 1,000 ML IV ONE ×2 (13:07→15:08)
[2023-06-03] MEDS: POTASSIUM CHL 20 Meq TABLET PO SCH ×2 (15:07→21:10)
[2023-06-03 16:55] VITALS: BP 102/63; PULSE 74; RESP 17; TEMP 98; O2SAT 92
[2023-06-03] MEDS ORDERED: DIPH25CA66 PO (19:04)
[2023-06-03] MEDS ORDERED: AMLO1TAB22 PO (19:04)
[2023-06-03] MEDS ORDERED: ACET-1881 PO (19:04)
[2023-06-03] MEDS ORDERED: MAGNSUS48 PO (19:15)
[2023-06-03] MEDS ORDERED: GAB100C PO (19:15)
[2023-06-03] MEDS ORDERED: FURO20TA3 PO (19:15)
[2023-06-03] MEDS ORDERED: BISA10SU52 PR (19:15)
[2023-06-03] MEDS ORDERED: PRED20TA2 PO (19:15)
[2023-06-03] MEDS ORDERED: FLEETMIN PR (19:15)
[2023-06-03] MEDS ORDERED: LISI-275 PO (19:15)
[2023-06-03] MEDS ORDERED: DOCU-94 PO (19:15)
[2023-06-03] MEDS ORDERED: MULTTAB75 PO (19:15)
[2023-06-03] MEDS ORDERED: LEV50T PO (19:15)
[2023-06-03 20:10] VITALS: BP 97/64; PULSE 66; RESP 17; TEMP 97.6; O2SAT 95
[2023-06-03 22:00] VITALS: BP 97/64; PULSE 66; RESP 17; TEMP 97.6; O2SAT 95
[2023-06-04 05:00] VITALS: BP 93/59; PULSE 70; RESP 17; TEMP 97.5; O2SAT 100
[2023-06-04] MEDS: SODIUM CHLORIDE 0.9% 1,000 ML IV SCH ×3 (05:46→19:35)
[2023-06-04] MEDS: POTASSIUM CHL 20 Meq TABLET PO SCH ×3 (05:50→23:00)
[2023-06-04] MEDS: LEVOTHYROXINE SODIUM 50 MCG TAB PO SCH (06:00)
[2023-06-04 07:10] LABS: Potassium 4.7 mmol/L (3.5-5.1)
[2023-06-04 07:29] LABS: Calcium 7.3 mg/dL (8.5-10.1)
[2023-06-04 08:00] VITALS: BP 94/61; PULSE 71; PULSE 75; RESP 18; TEMP 97.7; O2SAT 94
[2023-06-04 09:00] VITALS: BP 94/61; PULSE 75; RESP 18; TEMP 97.9; O2SAT 94
[2023-06-04] MEDS: CYANOCOBALAMIN 500 MCG TAB PO SCH (10:00)
[2023-06-04] MEDS: GABAPENTIN 100 MG CAP PO SCH ×2 (10:24→23:00)
[2023-06-04] MEDS: PANTOPRAZOLE 40 MG TAB PO SCH (10:26)
[2023-06-04] MEDS: predniSONE 5 MG TAB PO SCH (10:26)
[2023-06-04] MEDS: ENOXAPARIN SOD 40 MG/0.4 ML SYRINGE SC SCH (10:27)
[2023-06-04 13:00] VITALS: BP 96/66; PULSE 84; RESP 20; TEMP 97.8; O2SAT 95
[2023-06-04 17:00] VITALS: BP 93/61; PULSE 84; RESP 18; TEMP 98.4; O2SAT 94
[2023-06-04 20:00] VITALS: PULSE 85; RESP 18; O2SAT 94
[2023-06-04] MEDS: MORPHINE SULFATE INJ 2 MG/ml SYRG IV PRN (23:32)
[2023-06-05 05:00] VITALS: BP 96/64; PULSE 83; RESP 17; TEMP 97.6; O2SAT 94
[2023-06-05 08:00] VITALS: BP 106/77; PULSE 76; PULSE 84; RESP 16; TEMP 97.4; O2SAT 94
[2023-06-05 08:51] VITALS: BP 106/77; PULSE 84; RESP 16; TEMP 97.4; O2SAT 94
[2023-06-05] MEDS: ENOXAPARIN SOD 40 MG/0.4 ML SYRINGE SC SCH (10:00)
[2023-06-05] MEDS: PANTOPRAZOLE 40 MG TAB PO SCH (10:00)
[2023-06-05] MEDS: POTASSIUM CHL 20 Meq TABLET PO SCH ×3 (10:00→21:38)
[2023-06-05] MEDS: LEVOTHYROXINE SODIUM 50 MCG TAB PO SCH (10:00)
[2023-06-05] MEDS: SODIUM CHLORIDE 0.9% 1,000 ML IV SCH (10:11)
[2023-06-05] MEDS: GABAPENTIN 100 MG CAP PO SCH ×2 (10:12→21:49)
[2023-06-05] MEDS: predniSONE 5 MG TAB PO SCH (10:12)
[2023-06-05 17:00] VITALS: BP 104/64; PULSE 83; RESP 14; TEMP 97.6; O2SAT 96
[2023-06-05 20:00] VITALS: PULSE 79; PULSE 80; RESP 18; O2SAT 94
[2023-06-05 22:00] VITALS: BP 93/63; PULSE 80; RESP 16; TEMP 97.3; O2SAT 94
[2023-06-06] VITALS (7 sets, daily range): BP systolic 88–100; BP diastolic 55–89; PULSE 78–89; RESP 16–18; TEMP 97.7–98.2; O2SAT 93–96
[2023-06-06] MEDS: POTASSIUM CHL 20 Meq TABLET PO SCH ×3 (06:00→21:58)
[2023-06-06] MEDS: LEVOTHYROXINE SODIUM 50 MCG TAB PO SCH (08:03)
[2023-06-06] MEDS: predniSONE 5 MG TAB PO SCH (11:14)
[2023-06-06] MEDS: GABAPENTIN 100 MG CAP PO SCH ×2 (11:14→21:55)
[2023-06-06] MEDS: ENOXAPARIN SOD 40 MG/0.4 ML SYRINGE SC SCH (11:15)
[2023-06-06] MEDS: SODIUM CHLORIDE 0.9% 1,000 ML IV SCH ×2 (14:30→22:40)
[2023-06-07] VITALS (8 sets, daily range): BP systolic 92–102; BP diastolic 59–64; PULSE 79–94; RESP 14–20; TEMP 97.8–98.4; O2SAT 94–95
[2023-06-07] MEDS: POTASSIUM CHL 20 Meq TABLET PO SCH ×3 (05:55→21:11)
[2023-06-07] MEDS: LEVOTHYROXINE SODIUM 50 MCG TAB PO SCH (05:55)
[2023-06-07] MEDS: GABAPENTIN 100 MG CAP PO SCH ×2 (09:18→22:00)
[2023-06-07] MEDS: predniSONE 5 MG TAB PO SCH (09:18)
[2023-06-07] MEDS: ENOXAPARIN SOD 40 MG/0.4 ML SYRINGE SC SCH (09:19)
[2023-06-07] MEDS: SODIUM CHLORIDE 0.9% 1,000 ML IV SCH (12:00)
[2023-06-08] VITALS (7 sets, daily range): BP systolic 94–120; BP diastolic 58–69; PULSE 78–89; RESP 14–19; TEMP 97.7–98.2; O2SAT 94–96
[2023-06-08] MEDS: SODIUM CHLORIDE 0.9% 1,000 ML IV SCH (01:20)
[2023-06-08] MEDS: POTASSIUM CHL 20 Meq TABLET PO SCH (06:00)
[2023-06-08] MEDS: LEVOTHYROXINE SODIUM 50 MCG TAB PO SCH (06:07)
[2023-06-08] MEDS: predniSONE 5 MG TAB PO SCH (10:12)
[2023-06-08] MEDS: GABAPENTIN 100 MG CAP PO SCH ×2 (10:12→21:05)
[2023-06-08] MEDS: ENOXAPARIN SOD 40 MG/0.4 ML SYRINGE SC SCH (10:13)
[2023-06-09] MEDS: LEVOTHYROXINE SODIUM 50 MCG TAB PO SCH (07:00)
[2023-06-09 08:10] VITALS: BP 92/60; PULSE 99; RESP 18; TEMP 98.3; O2SAT 93
[2023-06-09 09:00] VITALS: BP 92/60; PULSE 99; RESP 18; TEMP 98.3; O2SAT 93
[2023-06-09] MEDS: predniSONE 5 MG TAB PO SCH (09:11)
[2023-06-09] MEDS: GABAPENTIN 100 MG CAP PO SCH ×2 (09:11→21:21)
[2023-06-09] MEDS: ENOXAPARIN SOD 40 MG/0.4 ML SYRINGE SC SCH (09:12)
[2023-06-09 13:00] VITALS: BP 90/61; PULSE 84; RESP 18; TEMP 98.3; O2SAT 98
[2023-06-09 17:00] VITALS: BP 102/73; PULSE 94; RESP 18; TEMP 98.1; O2SAT 94
[2023-06-09 20:00] VITALS: BP 90/65; PULSE 84; RESP 19; TEMP 98; O2SAT 92
[2023-06-09] MEDS: POTASSIUM CHL 20 Meq TABLET PO SCH (21:24)
[2023-06-09] MEDS: NYSTATIN TOPICAL POWDER 15GM TOP SCH (21:26)
[2023-06-09 22:00] VITALS: BP 90/65; PULSE 84; RESP 19; TEMP 98; O2SAT 92
[2023-06-10 05:00] VITALS: BP 89/60; PULSE 92; RESP 19; TEMP 98.1; O2SAT 91
[2023-06-10] MEDS: LEVOTHYROXINE SODIUM 50 MCG TAB PO SCH (06:26)
[2023-06-10] MEDS: ENOXAPARIN SOD 40 MG/0.4 ML SYRINGE SC SCH (08:45)
[2023-06-10] MEDS: GABAPENTIN 100 MG CAP PO SCH ×2 (08:45→22:16)
[2023-06-10] MEDS: predniSONE 5 MG TAB PO SCH (08:45)
[2023-06-10] MEDS: POTASSIUM CHL 20 Meq TABLET PO SCH ×2 (08:46→22:16)
[2023-06-10] MEDS: NYSTATIN TOPICAL POWDER 15GM TOP SCH ×2 (08:48→22:26)
[2023-06-10 09:00] VITALS: BP 92/64; PULSE 89; RESP 18; TEMP 98; O2SAT 97
[2023-06-10 10:23] LABS: BUN/Creatinine Ratio 31.4 (10.0-20.0); Calcium 8.3 mg/dL (8.5-10.1); Potassium 3.9 mmol/L (3.5-5.1)
[2023-06-10 13:00] VITALS: BP 89/46; PULSE 94; RESP 14; TEMP 98.1; O2SAT 95
[2023-06-10] MEDS ORDERED: SODIUM CHLORIDE 0.9% 1,000 ML IV ONE (15:30)
[2023-06-10 16:51] VITALS: BP 90/49; PULSE 87; RESP 18; TEMP 97.9; O2SAT 97
[2023-06-10 20:00] VITALS: BP 88/49; PULSE 90; RESP 16; TEMP 97.4; O2SAT 94
[2023-06-10 22:00] VITALS: BP 88/49; PULSE 90; RESP 16; TEMP 97.4; O2SAT 94
[2023-06-10] MEDS: SERTRALINE HCL 50 MG TAB PO SCH (22:19)
[2023-06-11 04:04] LABS: Urine Bacteria MOD /hpf (None Seen); Urine Blood TRACE /uL (Negative); Urine Mucus FEW (None Seen); Urine Specific Gravity 1.014 (1.001-1.035); Urine WBC 193 /hpf (0 - 5); Urine WBC Clumps PRESENT /hpf (None Seen)
[2023-06-11 05:00] VITALS: BP 91/60; PULSE 85; RESP 18; TEMP 98.1; O2SAT 94
[2023-06-11 06:22] LABS: Hematocrit 27.2 % (36.0-46.0); Hemoglobin 9.3 g/dL (12.2-16.2); Mean Corpuscular Hemoglobin 30.8 pg (28.0-32.0); Mean Corpuscular Hgb Conc. 34.2 g/dL (32.0-36.0); Red Blood Cells 3.03 10^6/uL (4.0-5.20); Red Cell Distribution Width 15.2 % (11.8-14.3); White Blood Cell 5.8 10^3/uL (4.4-10.8)
[2023-06-11 06:26] LABS: Basophils % (manual) 0 (0.0-2.0); Blast Cells 0; Promyelocytes % 0; Reactive Lymphocytes 0
[2023-06-11] MEDS: LEVOTHYROXINE SODIUM 50 MCG TAB PO SCH (06:36)
[2023-06-11 06:59] LABS: BUN/Creatinine Ratio 31.3 (10.0-20.0); Potassium 4.2 mmol/L (3.5-5.1)
[2023-06-11 07:05] LABS: Bilirubin, Total 0.4 mg/dL (0.2-1.0); Calcium 7.6 mg/dL (8.5-10.1); Total Protein 4.5 g/dL (6.4-8.2)
[2023-06-11 08:00] VITALS: PULSE 81; RESP 18; O2SAT 94
[2023-06-11 08:06] LABS: Band Neutrophils % (manual) 11; Eosinophils % (manual) 2 (0-7); Lymphocytes % (manual) 16 (10.0-50.0); Metamyelocytes % 4; Monocytes % (manual) 4 (0-12); Myelocytes % 2
[2023-06-11 08:45] VITALS: BP 110/64; PULSE 81; RESP 18; TEMP 98.1; O2SAT 94
[2023-06-11] MEDS: predniSONE 5 MG TAB PO SCH (10:25)
[2023-06-11] MEDS: levoFLOXacin 500MG 100 ML IV SCH (10:25)
[2023-06-11] MEDS: ENOXAPARIN SOD 40 MG/0.4 ML SYRINGE SC SCH (10:26)
[2023-06-11] MEDS: SERTRALINE HCL 50 MG TAB PO SCH (10:26)
[2023-06-11] MEDS: POTASSIUM CHL 20 Meq TABLET PO SCH ×2 (10:26→21:00)
[2023-06-11] MEDS: NYSTATIN TOPICAL POWDER 15GM TOP SCH ×2 (10:26→21:25)
[2023-06-11] MEDS: GABAPENTIN 100 MG CAP PO SCH ×2 (10:26→21:22)
[2023-06-11] MEDS: MORPHINE SULFATE INJ 2 MG/ml SYRG IV PRN ×2 (12:59→23:02)
[2023-06-11 14:16] VITALS: BP 107/62; PULSE 84; RESP 17; TEMP 97.8; O2SAT 96
[2023-06-11] MEDS: TOLTERODINE TARTRATE 1 MG TAB PO SCH (21:22)
[2023-06-11 22:00] VITALS: BP 105/51; PULSE 92; RESP 19; TEMP 97.6; O2SAT 94
[2023-06-12 05:00] VITALS: BP 93/54; PULSE 82; RESP 18; TEMP 97.2; O2SAT 94
[2023-06-12] MEDS: LEVOTHYROXINE SODIUM 50 MCG TAB PO SCH (06:28)
[2023-06-12 08:00] VITALS: PULSE 88; RESP 20; O2SAT 95
[2023-06-12 09:00] VITALS: BP 92/52; PULSE 84; RESP 18; TEMP 97.9; O2SAT 94
[2023-06-12] MEDS: levoFLOXacin 500MG 100 ML IV SCH (11:06)
[2023-06-12] MEDS: ENOXAPARIN SOD 40 MG/0.4 ML SYRINGE SC SCH (11:07)
[2023-06-12] MEDS: TOLTERODINE TARTRATE 1 MG TAB PO SCH ×2 (11:09→22:14)
[2023-06-12] MEDS: MORPHINE SULFATE INJ 2 MG/ml SYRG IV PRN ×2 (11:09→22:14)
[2023-06-12] MEDS: POTASSIUM CHL 20 Meq TABLET PO SCH ×2 (11:10→22:00)
[2023-06-12] MEDS: predniSONE 5 MG TAB PO SCH (11:10)
[2023-06-12] MEDS: NYSTATIN TOPICAL POWDER 15GM TOP SCH ×2 (11:11→22:14)
[2023-06-12] MEDS: SERTRALINE HCL 50 MG TAB PO SCH (11:11)
[2023-06-12] MEDS: GABAPENTIN 100 MG CAP PO SCH ×2 (11:11→22:14)
[2023-06-12 13:00] VITALS: BP 93/59; PULSE 91; RESP 18; TEMP 97.7; O2SAT 91
[2023-06-12 16:59] VITALS: BP 97/61; PULSE 78; RESP 18; TEMP 97.7; O2SAT 93
[2023-06-12 22:00] VITALS: BP 103/69; PULSE 88; RESP 18; TEMP 98.3; O2SAT 93
[2023-06-13 05:00] VITALS: BP 91/58; PULSE 77; RESP 17; TEMP 98.3; O2SAT 94
[2023-06-13] MEDS: LEVOTHYROXINE SODIUM 50 MCG TAB PO SCH (06:00)
[2023-06-13 08:00] VITALS: BP 97/60; PULSE 89; RESP 16; TEMP 97.7; O2SAT 93
[2023-06-13] MEDS: levoFLOXacin 500MG 100 ML IV SCH ×2 (11:14→11:20)
[2023-06-13] MEDS: SERTRALINE HCL 50 MG TAB PO SCH (11:15)
[2023-06-13] MEDS: TOLTERODINE TARTRATE 1 MG TAB PO SCH ×2 (11:15→21:25)
[2023-06-13] MEDS: NYSTATIN TOPICAL POWDER 15GM TOP SCH ×2 (11:15→21:25)
[2023-06-13] MEDS: ENOXAPARIN SOD 40 MG/0.4 ML SYRINGE SC SCH (11:15)
[2023-06-13] MEDS: POTASSIUM CHL 20 Meq TABLET PO SCH ×2 (11:15→21:28)
[2023-06-13] MEDS: GABAPENTIN 100 MG CAP PO SCH ×2 (11:15→21:25)
[2023-06-13] MEDS: predniSONE 5 MG TAB PO SCH (11:15)
[2023-06-13 13:00] VITALS: BP 100/61; PULSE 79; RESP 18; TEMP 98; O2SAT 95
[2023-06-13 17:00] VITALS: BP 101/61; PULSE 82; RESP 18; TEMP 98.1; O2SAT 94
[2023-06-13 22:00] VITALS: BP 96/62; PULSE 79; RESP 16; TEMP 97.6; O2SAT 94
[2023-06-14 00:41] VITALS: BP 95/66
[2023-06-14 05:00] VITALS: BP 107/66; PULSE 86; RESP 18; TEMP 97.8; O2SAT 94
[2023-06-14] MEDS: LEVOTHYROXINE SODIUM 50 MCG TAB PO SCH (06:13)
[2023-06-14 08:00] VITALS: BP 96/59; PULSE 85; RESP 17; TEMP 97.8; O2SAT 96
[2023-06-14 09:00] VITALS: BP 96/59; PULSE 85; RESP 17; TEMP 97.8; O2SAT 96
[2023-06-14] MEDS: levoFLOXacin 500MG 100 ML IV SCH (10:00)
[2023-06-14] MEDS: POTASSIUM CHL 20 Meq TABLET PO SCH ×2 (10:00→22:00)
[2023-06-14] MEDS: SERTRALINE HCL 50 MG TAB PO SCH (10:00)
[2023-06-14] MEDS: TOLTERODINE TARTRATE 1 MG TAB PO SCH ×2 (10:00→22:00)
[2023-06-14] MEDS: predniSONE 5 MG TAB PO SCH (10:02)
[2023-06-14] MEDS: ENOXAPARIN SOD 40 MG/0.4 ML SYRINGE SC SCH (10:02)
[2023-06-14] MEDS: GABAPENTIN 100 MG CAP PO SCH ×2 (10:02→22:17)
[2023-06-14] MEDS: NYSTATIN TOPICAL POWDER 15GM TOP SCH ×2 (10:04→22:00)
[2023-06-14] MEDS ORDERED: LACTULOSE 20Gm/30ML SOLN PO ONE (11:30)
[2023-06-14 16:21] LABS: Urine Bacteria NONE SEEN /hpf (None Seen); Urine Blood Negative /uL (Negative); Urine Specific Gravity 1.018 (1.001-1.035); Urine WBC 53 /hpf (0 - 5)
[2023-06-14 17:00] VITALS: BP 116/75; PULSE 91; RESP 18; TEMP 97.8; O2SAT 95
[2023-06-14 22:00] VITALS: BP 98/63; PULSE 94; RESP 17; TEMP 99.3; O2SAT 92
[2023-06-15] VITALS (8 sets, daily range): BP systolic 95–115; BP diastolic 56–73; PULSE 80–89; RESP 16–19; TEMP 97.4–98.1; O2SAT 92–97
[2023-06-15 06:02] LABS: Potassium 3.4 mmol/L (3.5-5.1)
[2023-06-15 06:11] LABS: Albumin 2.7 g/dL (3.4-5.0); BUN/Creatinine Ratio 41.7 (10.0-20.0); Bilirubin, Total 0.5 mg/dL (0.2-1.0); Calcium 8.6 mg/dL (8.5-10.1); Total Protein 6.6 g/dL (6.4-8.2)
[2023-06-15] MEDS: LEVOTHYROXINE SODIUM 50 MCG TAB PO SCH (06:25)
[2023-06-15] MEDS: ENOXAPARIN SOD 40 MG/0.4 ML SYRINGE SC SCH (09:56)
[2023-06-15] MEDS: POTASSIUM CHL 20 Meq TABLET PO SCH ×2 (09:57→21:07)
[2023-06-15] MEDS: TOLTERODINE TARTRATE 1 MG TAB PO SCH ×2 (09:59→21:06)
[2023-06-15] MEDS: SERTRALINE HCL 50 MG TAB PO SCH (09:59)
[2023-06-15] MEDS: predniSONE 5 MG TAB PO SCH (10:01)
[2023-06-15] MEDS: GABAPENTIN 100 MG CAP PO SCH ×2 (10:01→21:06)
[2023-06-15] MEDS: NYSTATIN TOPICAL POWDER 15GM TOP SCH ×2 (10:03→22:00)
[2023-06-15] MEDS ORDERED: LACTULOSE 20Gm/30ML SOLN PO ONE (13:30)
[2023-06-15] MEDS ORDERED: diphenhdrAMINE HCL 25 MG CAP PO ONE (13:30)
[2023-06-16] VITALS (7 sets, daily range): BP systolic 92–110; BP diastolic 52–67; PULSE 83–96; RESP 16–20; TEMP 97.7–98.2; O2SAT 92–97
[2023-06-16] MEDS: LEVOTHYROXINE SODIUM 50 MCG TAB PO SCH (06:02)
[2023-06-16] MEDS: GABAPENTIN 100 MG CAP PO SCH ×2 (09:47→21:37)
[2023-06-16] MEDS: ENOXAPARIN SOD 40 MG/0.4 ML SYRINGE SC SCH (09:48)
[2023-06-16] MEDS: SERTRALINE HCL 50 MG TAB PO SCH (09:48)
[2023-06-16] MEDS: POTASSIUM CHL 20 Meq TABLET PO SCH ×2 (09:48→21:38)
[2023-06-16] MEDS: predniSONE 5 MG TAB PO SCH (09:48)
[2023-06-16] MEDS: TOLTERODINE TARTRATE 1 MG TAB PO SCH ×2 (09:48→21:37)
[2023-06-16] MEDS: NYSTATIN TOPICAL POWDER 15GM TOP SCH ×2 (10:10→22:00)
[2023-06-16] MEDS: HYDROcodone-ACET 5/325MG TAB PO PRN ×2 (12:38→21:39)
[2023-06-17 05:29] VITALS: BP 110/70; PULSE 82; RESP 18; TEMP 98.5; O2SAT 94
[2023-06-17] MEDS: LEVOTHYROXINE SODIUM 50 MCG TAB PO SCH (06:29)
[2023-06-17 07:30] VITALS: PULSE 90; RESP 19; O2SAT 94
[2023-06-17] MEDS: SERTRALINE HCL 50 MG TAB PO SCH (11:14)
[2023-06-17] MEDS: ENOXAPARIN SOD 40 MG/0.4 ML SYRINGE SC SCH (11:14)
[2023-06-17] MEDS: TOLTERODINE TARTRATE 1 MG TAB PO SCH (11:14)
[2023-06-17] MEDS: GABAPENTIN 100 MG CAP PO SCH (11:15)
[2023-06-17] MEDS: predniSONE 5 MG TAB PO SCH (11:15)
[2023-06-17] MEDS: NYSTATIN TOPICAL POWDER 15GM TOP SCH (11:16)
[2023-06-17] MEDS: POTASSIUM CHL 20 Meq TABLET PO SCH (11:24)
== END 2023-06-17 13:55 | disposition hospice, inpatient (51) | DRG 605 ==
LOC: ER 08:16 → EDBD 08:16 → TELE 06-02 01:13 → TELE-WESTW 06-03 16:11 → WEST WING 06-07 23:07
PROVIDERS: ADMIT Internal Medicine; ATTEND Internal Medicine
DX: S11.91XA Laceration without foreign body of unspecified part of neck, initial encounter (principal); F03.93 Unspecified dementia, unspecified severity, with mood disturbance; F33.2 Major depressive disorder, recurrent severe without psychotic features; N82.3 Fistula of vagina to large intestine; E87.6 Hypokalemia; I10 Essential (primary) hypertension; D51.0 Vitamin B12 deficiency anemia due to intrinsic factor deficiency; E83.51 Hypocalcemia; M48.061 Spinal stenosis, lumbar region without neurogenic claudication; E03.9 Hypothyroidism, unspecified; T14.91XA Suicide attempt, initial encounter; W18.39XA Other fall on same level, initial encounter; S40.021A Contusion of right upper arm, initial encounter; R20.3 Hyperesthesia; L89.322 Pressure ulcer of left buttock, stage 2; L89.312 Pressure ulcer of right buttock, stage 2; N32.81 Overactive bladder; Z88.0 Allergy status to penicillin; Z88.2 Allergy status to sulfonamides; Z91.040 Latex allergy status; Z90.710 Acquired absence of both cervix and uterus; Z90.49 Acquired absence of other specified parts of digestive tract; Z74.01 Bed confinement status; Z80.9 Family history of malignant neoplasm, unspecified; Z91.148 Patient's other noncompliance with medication regimen for other reason; Y93.89 Activity, other specified; Y92.89 Other specified places as the place of occurrence of the external cause; Y99.8 Other external cause status
CPT/HCPCS: 36415; 80048; 80053; 80307; 81001; 82607; 83036; 83735; 84132; 84443; 85007; 85027; 87081; 87086; G0378; J1956; J2001; J3480